=== PATIENT | female | born 1995 | race Asian ===

== ENCOUNTER 2017-02-20 18:41 | Emergency (ER) | payer MEDICAID ==
[~2017-02-20] VITALS: Ht 172.7 cm; Wt 114.1 kg
[2017-02-20] MEDS ORDERED: SODIUM CHLORIDE 0.9% 1,000ML IVBOLUS ONE (20:00)
[2017-02-20] MEDS ORDERED: MORPHINE SULFATE 4 MG/ML, 1ML IVPush PRN (20:00)
[2017-02-20] MEDS ORDERED: ONDANSETRON 2MG/ML, 2ML IVPush ONE (20:00)
[2017-02-20] MEDS ORDERED: SODIUM CHLORIDE FLUSH 10ML SYR IVF ONE (20:00)
[2017-02-20 20:16] LABS: HEMATOCRIT 45.9 % (34.6-47.8); HEMOGLOBIN 15.6 g/dL (11.7-16.4); WHITE BLOOD COUNT 8.5 x10^3/uL (4.5-13.2)
[2017-02-20 20:27] LABS: ASPARTATE AMINO TRANSFERASE 28 U/L (15-37); BLOOD UREA NITROGEN 10 mg/dL (7-18)
[2017-02-20] MEDS ORDERED: DICYCLOMINE 10 MG/ML, 2ML IM ONE (20:30)
[2017-02-20 21:11] VITALS: BP 118/44
== END 2017-02-20 22:09 | disposition home or self-care (01) ==
LOC: ED 22:00
DX: R10.33 Periumbilical pain (principal); R10.10 Upper abdominal pain, unspecified
CPT/HCPCS: 36415; 80053; 81001; 83690; 84703; 85025; 87086; 96372; 99284; J0500

== ENCOUNTER 2017-08-17 11:05 | Emergency (ER) | payer SELFPAY ==
[~2017-08-17] VITALS: Ht 172.7 cm; Wt 115.0 kg
[2017-08-17 11:08] VITALS: BP 132/83
== END 2017-08-17 12:32 | disposition home or self-care (01) ==
LOC: ED 12:25
DX: R19.7 Diarrhea, unspecified (principal)
CPT/HCPCS: 99281

== ENCOUNTER 2018-02-09 21:29 | Emergency (ER) | payer SELFPAY ==
[~2018-02-09] VITALS: Ht 180.3 cm; Wt 114.5 kg
[2018-02-09 21:32] VITALS: BP 136/86
== END 2018-02-09 23:38 | disposition home or self-care (01) ==
LOC: ED 23:32
DX: S93.622A Sprain of tarsometatarsal ligament of left foot, initial encounter (principal); X50.1XXA Overexertion from prolonged static or awkward postures, initial encounter; Y93.89 Activity, other specified; Y92.009 Unspecified place in unspecified non-institutional (private) residence as the place of occurrence of the external cause; Y99.8 Other external cause status
CPT/HCPCS: 99284

== ENCOUNTER 2019-06-08 21:05 | Emergency (ER) | payer OTHER ==
[~2019-06-08] VITALS: Ht 180.3 cm; Wt 116.6 kg
[2019-06-08 21:14] VITALS: BP 141/94
[2019-06-08] MEDS ORDERED: DIPHENHYDRAMINE 50 MG CAPSULE ONE (21:53)
[2019-06-08] MEDS ORDERED: IBUPROFEN 200 MG TABLET ONE (21:54)
[2019-06-08] MEDS ORDERED: PSEUDOEPHEDRINE 30 MG TABLET PO PRN (22:00)
[2019-06-08] MEDS ORDERED: IBUPROFEN 600 MG TABLET PO ONE (22:00)
[2019-06-08] MEDS ORDERED: DIPHENHYDRAMINE 25 MG CAPSULE PO ONE (22:00)
== END 2019-06-08 22:11 | disposition home or self-care (01) ==
LOC: ED 22:00
DX: J10.1 Influenza due to other identified influenza virus with other respiratory manifestations (principal); J40 Bronchitis, not specified as acute or chronic
CPT/HCPCS: 99284; Q0163